=== PATIENT | female | born 1965 | race Caucasian/White ===

== ENCOUNTER 2017-08-12 10:10 | Inpatient (IN) | payer OTHER ==
[2017-08-12] VITALS (9 sets, daily range): BP systolic 104–137; BP diastolic 55–81; PULSE 79–99; RESP 13–22; TEMP 97.8–98.1; O2SAT 93–99
[~2017-08-12] VITALS: Ht 162.6 cm; Wt 107.6 kg
[2017-08-12] MEDS ORDERED: METO100T PO (10:25)
[2017-08-12] MEDS ORDERED: LEVO25TA4 PO (10:25)
[2017-08-12] MEDS ORDERED: SODIUM CHLORIDE 0.9% FLUSH 10 ML FLUSH IVF PRN (11:00)
--- NOTE | 2017-08-12 11:04 | PD ---
HPI Chief Complaint: Chest Pain Time Seen by Provider: 10:36 Travel History International Travel<30 days: No Contact w/Intl Traveler<30days: No Traveled to known affect area: No History of Present Illness HPI The patient is a 52-year-old female who presents to the emergency department for left-sided weakness, numbness, and mild confusion. The patient states she went to bed last night feeling well, however, when she awakened today she noticed she had blurry vision, mild confusion, and left-sided weakness and numbness. The patient states her left arm and left leg feel heavy , numb, and also notes some mild left-sided chest pain. The patient denied any nausea, vomiting, or diaphoresis. The patient does have a history of hypertension, denies any previous history of hyperlipidemia, diabetes, tobacco use, CVA, TIA, or CO. The patient went to work, however, states she was staring at her computer screen for 2 hours and then told her boss that there was "something wrong". She awakened with symptoms, does not know the exact onset of her symptoms. PFSH Past Medical History Anxiety: Yes Depression: Yes Cardiovascular Problems: Yes High Cholesterol: Yes (BORDERLINE) Diminished Hearing: No Headaches: Yes Hypertension: Yes Thyroid Disease: Yes ?: Not : 2 Para: 2 Past Surgical History Gynecologic Surgery: Yes (PARTIAL HYST) Hysterectomy: Yes (PARTIAL) Tonsillectomy: Yes Social History Alcohol Use: Yes (RARELY) Tobacco Use: No Substance Use: No Allergies-Medications (Allergen,Severity, Reaction): Coded Allergies: acetaminophen (Verified Allergy, Severe, Nausea/Vomiting, 08/12/17) oxycodone (Verified Allergy, Severe, Nausea/Vomiting, 08/12/17) Reported Meds & Prescriptions Reported Meds & Active Scripts Active Reported Xanax (Alprazolam) 2 Mg Tab 2 Mg PO Q8H PRN Effexor (Venlafaxine HCl) 75 Mg Tab 75 Mg PO DAILY Metoprolol Tartrate 100 Mg Tab 100 Mg PO BID Levothyroxine (Levothyroxine Sodium) 25 Mcg Tab 25 Mcg PO DAILY Review of Systems Except as stated in HPI: all other systems reviewed are Neg General / Constitutional: No: Fever Cardiovascular: Positive: Chest Pain or Discomfort Respiratory: No: Shortness of Breath Gastrointestinal: No: Nausea, Vomiting, Abdominal Pain Musculoskeletal: Positive: Weakness Neurologic: Positive: Change in Mentation, Paresthesia, Sensory Disturbance Physical Exam Narrative GENERAL: Awake, alert, nontoxic-appearing 52-year-old female who appears her stated age and is in no acute respiratory distress. SKIN: Focused skin assessment warm/dry. HEAD: Atraumatic. Normocephalic. EYES: Pupils equal and round. Pupils are 3 mm bilateral and reactive. EOMs are intact. Patient is able to see fingers at a distance of 2 feet without difficulty. ENT: No nasal bleeding or discharge. Mucous membranes pink and moist. NECK: Trachea midline. No JVD. CARDIOVASCULAR: Regular rate and rhythm. No murmur appreciated. RESPIRATORY: No accessory muscle use. Clear to auscultation. Breath sounds equal bilaterally. GASTROINTESTINAL: Abdomen soft, non-tender, nondistended. MUSCULOSKELETAL: No obvious deformities. No clubbing. No cyanosis. No edema. NEUROLOGICAL: Awake and alert. Patient is slightly slow to respond to questioning. No obvious dysarthria. Smile is symmetric. Finger to nose and heel to hernandez are normal. Drift of the left leg noted. Sensation is decreased in sensation over the left leg, left arm, left aspect of the face, but is symmetric in the V1 distribution. She is alert and oriented 4, but does respond slowly when asking her to repeat phrases. NIHSS 4. PSYCHIATRIC: Appropriate mood and affect; insight and judgment normal. Data Data Last Documented VS Vital Signs Date Time Temp Pulse Resp B/P (MAP) Pulse Ox O2 Delivery O2 Flow Rate FiO2 08/12/17 11:35 97 Room Air 08/12/17 10:47 96 18 08/12/17 10:11 97.9 Orders Orders Prothrombin Time / Inr (Pt) (08/12/17 10:48) Act Partial Throm Time (Ptt) (08/12/17 10:48) Complete Blood Count With Diff (08/12/17 10:48) Comprehensive Metabolic Panel (08/12/17 10:48) Creatine Kinase (Cpk) (08/12/17 10:48) Drug Screen, Random Urine (08/12/17 10:48) Troponin I (08/12/17 10:48) Urinalysis - C+S If Indicated (08/12/17 10:48) Ct Brain W/O Iv Contrast(Rout) (08/12/17 10:48) Chest, Single Ap (08/12/17 10:48) Ecg Monitoring (08/12/17 10:48) Iv Access Insert/Monitor (08/12/17 10:48) Oximetry (08/12/17 10:48) Blood Glucose (08/12/17 10:48) Sodium Chloride 0.9% Flush (Ns Flush) (08/12/17 11:00) Aspirin (Aspirin) (08/12/17 11:30) Morphine Inj (Morphine Inj) (08/12/17 12:15) Ondansetron Inj (Zofran Inj) (08/12/17 12:15) Place In Observation (08/12/17 ) Vital Signs (Adult) Q4H (08/12/17 12:13) Activity Bed Rest (08/12/17 12:13) Diet Npo (08/12/17 Lunch) Admit Order (Ed Use Only) (08/12/17 12:13) Labs Laboratory Tests Test 08/12/17 10:50 08/12/17 11:20 White Blood Count 9.9 TH/MM3 Red Blood Count 4.46 MIL/MM3 Hemoglobin 13.2 GM/DL Hematocrit 39.5 % Mean Corpuscular Volume 88.5 FL Mean Corpuscular Hemoglobin 29.6 PG Mean Corpuscular Hemoglobin Concent 33.4 % Red Cell Distribution Width 14.6 % Platelet Count 320 TH/MM3 Mean Platelet Volume 8.1 FL Neutrophils (%) (Auto) 68.4 % Lymphocytes (%) (Auto) 22.5 % Monocytes (%) (Auto) 7.4 % Eosinophils (%) (Auto) 0.9 % Basophils (%) (Auto) 0.8 % Neutrophils # (Auto) 6.8 TH/MM3 Lymphocytes # (Auto) 2.2 TH/MM3 Monocytes # (Auto) 0.7 TH/MM3 Eosinophils # (Auto) 0.1 TH/MM3 Basophils # (Auto) 0.1 TH/MM3 CBC Comment DIFF FINAL Differential Comment Prothrombin Time 9.7 SEC Prothromb Time International Ratio 0.9 RATIO Activated Partial Thromboplast Time 23.9 SEC Blood Urea Nitrogen 15 MG/DL Creatinine 0.87 MG/DL Random Glucose 99 MG/DL Total Protein 7.1 GM/DL Albumin 3.3 GM/DL Calcium Level 8.6 MG/DL Alkaline Phosphatase 110 U/L Aspartate Amino Transf (AST/SGOT) 17 U/L Alanine Aminotransferase (ALT/SGPT) 36 U/L Total Bilirubin 0.3 MG/DL Sodium Level 139 MEQ/L Potassium Level 3.9 MEQ/L Chloride Level 103 MEQ/L Carbon Dioxide Level 27.4 MEQ/L Anion Gap 9 MEQ/L Estimat Glomerular Filtration Rate 68 ML/MIN Total Creatine Kinase 43 U/L Troponin I LESS THAN 0.02 NG/ML Urine Color LIGHT-YELLOW Urine Turbidity CLEAR Urine pH 6.5 Urine Specific Brandt 1.006 Urine Protein NEG mg/dL Urine Glucose (UA) NEG mg/dL Urine Ketones NEG mg/dL Urine Occult Blood NEG Urine Nitrite NEG Urine Bilirubin NEG Urine Urobilinogen LESS THAN 2.0 MG/DL Urine Leukocyte Esterase NEG Urine WBC LESS THAN 1 /hpf Urine Squamous Epithelial Cells 1 /hpf Microscopic Urinalysis Comment CATH-CULT NOT IND Urine Opiates Screen NEG Urine Barbiturates Screen NEG Urine Amphetamines Screen NEG Urine Benzodiazepines Screen POS Urine Cocaine Screen NEG Urine Cannabinoids Screen NEG MDM Medical Decision Making Medical Screen Exam Complete: Yes Emergency Medical Condition: Yes Medical Record Reviewed: Yes Interpretation(s) Last Impressions Head CT [id number]/12/[id number] Signed Impressions: Service Date/Time: Saturday, August 12, 2017 10:47 - CONCLUSION: Normal examination. Dejon Arellano Jr., MD Chest X-Ray [id number]/12/[id number] Signed Impressions: Service Date/Time: Saturday, August 12, 2017 11:41 - CONCLUSION: Hypoinflation with no acute cardiopulmonary process. Jose Rosas MD Laboratory Tests Test 08/12/17 10:50 08/12/17 11:20 White Blood Count 9.9 TH/MM3 Red Blood Count 4.46 MIL/MM3 Hemoglobin 13.2 GM/DL Hematocrit 39.5 % Mean Corpuscular Volume 88.5 FL Mean Corpuscular Hemoglobin 29.6 PG Mean Corpuscular Hemoglobin Concent 33.4 % Red Cell Distribution Width 14.6 % Platelet Count 320 TH/MM3 Mean Platelet Volume 8.1 FL Neutrophils (%) (Auto) 68.4 % Lymphocytes (%) (Auto) 22.5 % Monocytes (%) (Auto) 7.4 % Eosinophils (%) (Auto) 0.9 % Basophils (%) (Auto) 0.8 % Neutrophils # (Auto) 6.8 TH/MM3 Lymphocytes # (Auto) 2.2 TH/MM3 Monocytes # (Auto) 0.7 TH/MM3 Eosinophils # (Auto) 0.1 TH/MM3 Basophils # (Auto) 0.1 TH/MM3 CBC Comment DIFF FINAL Differential Comment Prothrombin Time 9.7 SEC Prothromb Time International Ratio 0.9 RATIO Activated Partial Thromboplast Time 23.9 SEC Blood Urea Nitrogen 15 MG/DL Creatinine 0.87 MG/DL Random Glucose 99 MG/DL Total Protein 7.1 GM/DL Albumin 3.3 GM/DL Calcium Level 8.6 MG/DL Alkaline Phosphatase 110 U/L Aspartate Amino Transf (AST/SGOT) 17 U/L Alanine Aminotransferase (ALT/SGPT) 36 U/L Total Bilirubin 0.3 MG/DL Sodium Level 139 MEQ/L Potassium Level 3.9 MEQ/L Chloride Level 103 MEQ/L Carbon Dioxide Level 27.4 MEQ/L Anion Gap 9 MEQ/L Estimat Glomerular Filtration Rate 68 ML/MIN Total Creatine Kinase 43 U/L Troponin I LESS THAN 0.02 NG/ML Urine Color LIGHT-YELLOW Urine Turbidity CLEAR Urine pH 6.5 Urine Specific Brandt 1.006 Urine Protein NEG mg/dL Urine Glucose (UA) NEG mg/dL Urine Ketones NEG mg/dL Urine Occult Blood NEG Urine Nitrite NEG Urine Bilirubin NEG Urine Urobilinogen LESS THAN 2.0 MG/DL Urine Leukocyte Esterase NEG Urine WBC LESS THAN 1 /hpf Urine Squamous Epithelial Cells 1 /hpf Microscopic Urinalysis Comment CATH-CULT NOT IND Urine Opiates Screen NEG Urine Barbiturates Screen NEG Urine Amphetamines Screen NEG Urine Benzodiazepines Screen POS Urine Cocaine Screen NEG Urine Cannabinoids Screen NEG Differential Diagnosis Differential diagnosis includes TIA, CVA, carotid dissection, vertebral artery dissection, MS, ACS, hypoxia, hyponatremia. Narrative Course IV was established, labs are drawn and sent, and the patient was placed on cardiac telemetry monitoring and continuous pulse oximetry monitoring. Stat CT of the brain was obtained. Chest x-ray was obtained. CT the brain is negative , therefore, the patient was administered aspirin 325 mg orally. X-rays unremarkable. Laboratory evaluation is unremarkable. Patient has numbness of the left side including the face, left arm, and left leg with mild drift to left leg, most likely related to CVA. Patient was not a candidate for TPA as she went to bed feeling well, and awakened with symptoms. Other considerations could be atypical neurologic disease including EMS. The patient will be minutes the medical service and may benefit from MRI and neurologic evaluation. Physician Communication Physician Communication I discussed the patient with the residents who agree with admission. Diagnosis Primary Impression: CVA (cerebral vascular accident) Qualified Codes: I63.9 - Cerebral infarction, unspecified Additional Impression: Left sided numbness Admitting Information Admitting Physician Requests: Admit Condition: Stable Beau Willingham MD Aug 12, 2017 11:04
[2017-08-12 11:14] LABS: AUTOMATED NEUTROPHIL # 6.8 TH/MM3 (1.8-7.7); BASOPHIL # 0.1 TH/MM3 (0-0.2); BASOPHIL % 0.8 % (0.0-2.0); EOSINOPHIL # 0.1 TH/MM3 (0-0.4); EOSINOPHIL % 0.9 % (0.0-4.0); HEMATOCRIT 39.5 % (35.0-46.0); HEMO FLAGS DIFF FINAL; LYMPH % 22.5 % (9.0-44.0); LYMPHOCYTE # 2.2 TH/MM3 (1.0-4.8); MEAN CELL VOLUME 88.5 FL (80.0-100.0); MEAN CORPUSCULAR HEMOGLOBIN 29.6 PG (27.0-34.0); MEAN CORPUSCULAR HGB CONC 33.4 % (32.0-36.0); MONO % 7.4 % (0.0-8.0); NEUT % 68.4 % (16.0-70.0); PLATELET COUNT 320 TH/MM3 (150-450); RED BLOOD COUNT 4.46 MIL/MM3 (4.00-5.30); RED CELL DISTRIBUTION WIDTH 14.6 % (11.6-17.2); WHITE BLOOD COUNT 9.9 TH/MM3 (4.0-11.0)
--- NOTE | 2017-08-12 11:16 | RADRPT ---
EXAM DATE/TIME: 08/12/2017 10:47 [facility] COMPARISON: No previous studies available for comparison. INDICATIONS : Left sided weakness and confusion. RADIATION DOSE: 56.35 CTDIvol (mGy) MEDICAL HISTORY : Cardiovascular disease. Hypertension. SURGICAL HISTORY : Hysterectomy. ENCOUNTER: Initial ACUITY: 1 day PAIN SCALE: 0/10 LOCATION: cranial TECHNIQUE: Multiple contiguous axial images were obtained of the head. Using automated exposure control and adj ustment of the mA and/or kV according to patient size, radiation dose was kept as low as reasonably a chievable to obtain optimal diagnostic quality images. DICOM format image data is available electro nically for review and comparison. FINDINGS: CEREBRUM: The ventricles are normal for age. No evidence of midline shift, mass lesion, hemorrhage or acute in farction. No extra-axial fluid collections are seen. POSTERIOR FOSSA: The cerebellum and brainstem are intact. The 4th ventricle is midline. The cerebellopontine angle i s unremarkable. EXTRACRANIAL: The visualized portion of the orbits is intact. SKULL: The calvaria is intact. No evidence of skull fracture. CONCLUSION: Normal examination. Dejon Arellano Jr., MD on August 12, 2017 at 11:13 Board Certified Radiologist. This report was verified electronically.
[2017-08-12 11:24] LABS: APTT (PATIENT) 23.9 SEC (24.3-30.1); INTERNATIONAL NORMALIZED RATIO 0.9 RATIO; PROTHROMBIN TIME - PATIENT 9.7 SEC (9.8-11.6)
[2017-08-12] MEDS ORDERED: ASPIRIN 325 MG TAB PO ONE (11:30)
[2017-08-12 11:36] LABS: BLOOD, URINE NEG (NEG); GLUCOSE,URINE NEG (NEG); KETONE, URINE NEG (NEG); NITRITE,URINE NEG (NEG); PH, URINE 6.5 (5.0-8.5); SQUAMOUS EPITHELIAL CELL URINE 1 /hpf (0-5); URINE COLOR LIGHT-YELLOW (YELLW/STRAW)
[2017-08-12 11:38] LABS: ALT (GPT) 36 U/L (10-53); ANION GAP 9 MEQ/L (5-15); AST (GOT) 17 U/L (15-37); BICARBONATE 27.4 MEQ/L (21.0-32.0); BLOOD UREA NITROGEN 15 MG/DL (7-18); CHLORIDE 103 MEQ/L (98-107); GLOMERULAR FILTRATION RATE 68 ML/MIN (>89); POTASSIUM 3.9 MEQ/L (3.5-5.1); SODIUM (NA) 139 MEQ/L (136-145)
[2017-08-12 11:38] LABS: COMMENT (UR) CATH-CULT NOT IND; CULTURE IF INDICATED CATH CULTURE NOT IND
[2017-08-12 11:42] LABS: ALKALINE PHOSPHATASE 110 U/L (45-117); TOTAL BILIRUBIN ADULT 0.3 MG/DL (0.2-1.0)
[2017-08-12 11:45] LABS: CREATINE KINASE 43 U/L (26-192)
--- NOTE | 2017-08-12 11:50 | RADRPT ---
EXAM DATE/TIME: 08/12/2017 11:41 [facility] COMPARISON: No previous studies available for comparison. INDICATIONS : CVA, staring, vision doubled, confused. MEDICAL HISTORY : Atrial fibrillation in 2006 SURGICAL HISTORY : None. ENCOUNTER: Initial ACUITY: 1 day PAIN SCORE: 0/10 LOCATION: Bilateral chest FINDINGS: A single view of the chest demonstrates the lungs to be hypoinflated but clear. No effusions. Heart s ize is normal. Osseous structures are intact. CONCLUSION: Hypoinflation with no acute cardiopulmonary process. Jose Rosas MD on August 12, 2017 at 11:48 Board Certified Radiologist. This report was verified electronically.
[2017-08-12] MEDS ORDERED: VENL75TA PO (11:57)
[2017-08-12] MEDS ORDERED: XANA2TAB2 PO (11:57)
[2017-08-12] MEDS ORDERED: ONDANSETRON HCL 4 MG/2 ML VIAL IV PUSH ONE (12:15)
[2017-08-12] MEDS ORDERED: MORPHINE SULFATE 2 MG/ML INJ IV PUSH ONE (12:15)
--- NOTE | 2017-08-12 13:06 | HHI.HP ---
[facility] Service Family Medicine Primary Care Physician Non-Staff Admission Diagnosis CVA, left-sided weakness/numbness, visual changes Diagnoses: International Travel<30 Days: No Contact w/Intl Traveler<30days: No Known Affected Area: No History of Present Illness Patient is a 52 y/o F w/hx of HLD, afib, and HTN presenting with left-sided weakness and diplopia. Her 2 best friends are at bedside. At 7:30 am this morning, she says that she felt like she was in a fog while driving, experiencing diplopia w/headache. States her left side was "bothering her," and further elaborates that she felt left-sided chest pain and weakness/ numbness/tingling on the left side. She still proceeded on to her workplace, and while at work, noticed that her writing appeared more sloppy. 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 She was excused from work and then drove herself to the ED. all the while, she had trouble staying focused on the road and felt confused. Her best friend spoke with her on the phone earlier in the day and noted increased slurring of speech. Currently, her confusion has resolved but her left side still feels painful/uncomfortable. Patient states she has felt better with aspirin she received in the ER. Denies palpitations, syncope, tremor, or hx of seizures. A week ago, had slurred speech and sluggishness lasting a couple hours. She states she then continued on with her day and did nothing about the symptoms she had. Has been very stressed at work lately and admits to "taking on too much." Dr. Arellano is her PCP. 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 Had a history of afib in 2006. Was placed on coumadin for a year. However, she stopped taking it because her afib "went way." Does not take a daily aspirin or any form of anticoagulation. (Chinyere Chang MD R1) Review of Systems Constitutional: DENIES: Fatigue, Fever, Night Sweats Eyes: COMPLAINS OF: Blurred vision, DENIES: Eye pain Ears, nose, mouth, throat: DENIES: Tinnitus, Throat pain Respiratory: DENIES: Cough, Shortness of breath Cardiovascular: DENIES: Palpitations, Lower Extremity Edema Gastrointestinal: DENIES: Constipation, Diarrhea, Nausea Genitourinary: DENIES: Urinary frequency, Urinary incontinence Musculoskeletal: DENIES: Muscle aches, Stiffness Integumentary: DENIES: Abnormal pigmentation, Pruritus Hematologic/lymphatic: DENIES: Bruising Neurologic: COMPLAINS OF: Poor Balance, DENIES: Seizures, Tremor Psychiatric: COMPLAINS OF: Anxiety (Chinyere Chang MD R1) Past Family Social History Past Medical History Hypothyroidism HTN Anxiety Depression Recurrent sinus infxns Hx of atrial fibrillation on coumadin - 2006, took coumadin for a year Past Surgical History Fibroid cyst removal - 2008 Reported Medications Xanax (Alprazolam) 2 Mg Tab 2 Mg PO Q8H PRN Effexor (Venlafaxine HCl) 75 Mg Tab 75 Mg PO DAILY Metoprolol Tartrate 100 Mg Tab 100 Mg PO BID Levothyroxine (Levothyroxine Sodium) 25 Mcg Tab 25 Mcg PO DAILY (Chinyere Chang MD R1) Allergies: Coded Allergies: acetaminophen (Verified Allergy, Severe, Nausea/Vomiting, 08/12/17) oxycodone (Verified Allergy, Severe, Nausea/Vomiting, 08/12/17) Family History Mom: Izzy's Dad: passed at age 81 from fall, HLD, HTN Social History No smoking hx, no illict/recreational drug use, ETOH cocktail once/week (Chinyere Chang MD R1) Physical Exam Vital Signs Vital Signs Date Time Temp Pulse Resp B/P (MAP) Pulse Ox O2 Delivery O2 Flow Rate FiO2 08/12/17 11:35 97 Room Air 08/12/17 10:47 96 18 136/81 (99) 96 Room Air 08/12/17 10:24 96 22 137/78 (97) 96 Room Air 08/12/17 10:11 97.9 99 13 134/76 (95) 99 Physical Exam GENERAL: This is a well-nourished, well-developed patient, laying flat in bed, in no apparent distress. SKIN: Cool and dry. HEAD: Atraumatic. Normocephalic. EYES: Pupils equal round and reactive. Extraocular motions intact. No nystagmus on fixed, lateral, or smooth pursuit gaze. No scleral icterus. No injection or drainage. ENT: Throat without erythema. Uvula midline. Airway patent. NECK: Trachea midline. Supple, nontender, no meningeal signs. CARDIOVASCULAR: Regular rate and rhythm without murmurs, gallops, or rubs. RESPIRATORY: Clear to auscultation. Breath sounds equal bilaterally. No wheezes , rales, or rhonchi. GASTROINTESTINAL: Abdomen soft, non-tender, nondistended. N MUSCULOSKELETAL: Extremities without clubbing, cyanosis, or edema. No calf tenderness. NEUROLOGICAL: Awake and alert. Cranial nerves II, III, -X intact, CN XII intact. Decreased sensation to touch along the left sided of the face. Left sided decreased sensation to touch of extremities, 4/5 strength. Increased or 3 + reflexes of triceps, patella, and biceps of left side. Negative Babinksi's sign. Cerebellar testing (nose to finger, heel to hernandez) normal. Normal speech , no facial droop observed.. Laboratory Laboratory Tests Test 08/12/17 10:50 08/12/17 11:20 White Blood Count 9.9 Red Blood Count 4.46 Hemoglobin 13.2 Hematocrit 39.5 Mean Corpuscular Volume 88.5 Mean Corpuscular Hemoglobin 29.6 Mean Corpuscular Hemoglobin Concent 33.4 Red Cell Distribution Width 14.6 Platelet Count 320 Mean Platelet Volume 8.1 Neutrophils (%) (Auto) 68.4 Lymphocytes (%) (Auto) 22.5 Monocytes (%) (Auto) 7.4 Eosinophils (%) (Auto) 0.9 Basophils (%) (Auto) 0.8 Neutrophils # (Auto) 6.8 Lymphocytes # (Auto) 2.2 Monocytes # (Auto) 0.7 Eosinophils # (Auto) 0.1 Basophils # (Auto) 0.1 CBC Comment DIFF FINAL Differential Comment Prothrombin Time 9.7 Prothromb Time International Ratio 0.9 Activated Partial Thromboplast Time 23.9 Blood Urea Nitrogen 15 Creatinine 0.87 Random Glucose 99 Total Protein 7.1 Albumin 3.3 Calcium Level 8.6 Alkaline Phosphatase 110 Aspartate Amino Transf (AST/SGOT) 17 Alanine Aminotransferase (ALT/SGPT) 36 Total Bilirubin 0.3 Sodium Level 139 Potassium Level 3.9 Chloride Level 103 Carbon Dioxide Level 27.4 Anion Gap 9 Estimat Glomerular Filtration Rate 68 Total Creatine Kinase 43 Troponin I LESS THAN 0.02 Urine Color LIGHT-YELLOW Urine Turbidity CLEAR Urine pH 6.5 Urine Specific [place] 1.006 Urine Protein NEG Urine Glucose (UA) NEG Urine Ketones NEG Urine Occult Blood NEG Urine Nitrite NEG Urine Bilirubin NEG Urine Urobilinogen LESS THAN 2.0 Urine Leukocyte Esterase NEG Urine WBC LESS THAN 1 Urine Squamous Epithelial Cells 1 Microscopic Urinalysis Comment CATH-CULT NOT IND Urine Opiates Screen NEG Urine Barbiturates Screen NEG Urine Amphetamines Screen NEG Urine Benzodiazepines Screen POS Urine Cocaine Screen NEG Urine Cannabinoids Screen NEG (Chinyere Chang MD R1) Result Diagram: 08/12/17 1050 08/12/17 1050 Imaging Last [address] 08/12/17 1048 Signed Impressions: Service Date/Time: Saturday, August 12, 2017 10:47 - CONCLUSION: Normal examination. Dejon Arellano Jr., MD Chest X-Ray 08/12/17 1048 Signed Impressions: Service Date/Time: Saturday, August 12, 2017 11:41 - CONCLUSION: Hypoinflation with no acute cardiopulmonary process. Jose Rosas MD (Chinyere Chang MD R1) Caprini VTE Risk Assessment Caprini VTE Risk Assessment: Mod/High Risk (score >= 2) Caprini Risk Assessment Model Point Value = 1 Point Value = 2 Point Value = 3 Point Value = 5 Age 41-60 Minor surgery BMI > 25 kg/m2 Swollen legs Varicose veins or History of unexplained or recurrent spontaneous Oral contraceptives or hormone replacement Sepsis (< 1 month) Serious lung disease, including pneumonia (< 1 month) Abnormal pulmonary function Acute myocardial infarction Congestive heart failure (< 1 month) History of inflammatory bowel disease Medical patient at bed rest Age 61-74 Arthroscopic surgery Major open surgery (> 45 min) Laparoscopic surgery (> 45 min) Malignancy Confined to bed (> 72 hours) Immobilizing plaster cast Central venous access Age >= 75 History of VTE Family history of VTE Factor V Leiden Prothrombin [id number] Lupus anticoagulant Anticardiolipin antibodies Elevated serum homocysteine Heparin-induced thrombocytopenia Other congenital or acquired thrombophilia Stroke (< 1 month) Elective arthroplasty Hip, pelvis, or leg fracture Acute spinal cord injury (< 1 month) Prophylaxis Regimen Total Risk Factor Score Risk Level Prophylaxis Regimen 0-1 Low Early ambulation 2 Moderate Order ONE of the following: *Sequential Compression Device (SCD) *Heparin 5000 units SQ BID 3-4 Higher Order ONE of the following medications: *Heparin 5000 units SQ TID *Enoxaparin/Lovenox 40 mg SQ daily (WT < 150 kg, CrCl > 30 mL/min) *Enoxaparin/Lovenox 30 mg SQ daily (WT < 150 kg, CrCl > 10-29 mL/min) *Enoxaparin/Lovenox 30 mg SQ BID (WT < 150 kg, CrCl > 30 mL/min) AND/OR *Sequential Compression Device (SCD) 5 or more Highest Order ONE of the following medications: *Heparin 5000 units SQ TID (Preferred with Epidurals) *Enoxaparin/Lovenox 40 mg SQ daily (WT < 150 kg, CrCl > 30 mL/min) *Enoxaparin/Lovenox 30 mg SQ daily (WT < 150 kg, CrCl > 10-29 mL/min) *Enoxaparin/Lovenox 30 mg SQ BID (WT < 150 kg, CrCl > 30 mL/min) AND *Sequential Compression Device (SCD) (Chinyere Chang MD R1) Assessment and Plan Assessment and Plan Patient is a 52 y/o F w/hx of afib, HTN, and HLD presenting with headache, left sided chest pain,left sided weakness, and other stroke-like symptoms. Stroke scale of 4 (minimal). CT of the head was negative, patient was not a t-PA candidate due to length of time of symptoms. Patient passed swallow study and EKG and troponins were negative. Will admit patient for stroke work-up and consult neurology based on patient's hx of afib w/o anticoagulation and presentation of stroke-like symptoms. CHADSVASC score of 2. She is a candidate for anticoagulation. Differential: TIA, stroke, MS, hemiplegic migraine/migraine with aura, seizure Code Status FULL Discussed Condition With Dr. Herman and Dr. Zendejas (Chinyere Chang MD R1) Attending Attestation Patient seen and examined. Case reviewed and discussed with the resident team. Agree with plan of care as discussed with me and documented in the resident note. she is young and fortunately her sxs started to quickly improve. her history of a fib is not able to be verified right now with Medical records as this occurred many years ago and not at this hospital. starting strong anticoagulants always has some risk. here in the hospital no a fib has been seen but will keep monitoring this. Appreciate help of Neurology. Pt seen by me on admission in the ED with the residents (Ashley Herman MD) Problem List: (1) Stroke-like episode ICD Codes: I63.9 - Cerebral infarction, unspecified Status: Acute Plan: Associated w/reported slurred speech, diplopia, left sided decreased sensation to touch, tingling, and weakness. Has had similar episodes in the past - Neurochecks Q4H - Consult neurology - tele, 2D echo - MRI, MRA, US carotids, lipid profile, A1C - lying flat in bed for 12 hours, allow for permissive HTN (BP<220/120) - Pravastatin 40 mg daily - 81 mg aspirin and Lovenox 40 mg qdaily for anticoagulation (2) Migraine with aura ICD Codes: G43.109 - Migraine with aura, not intractable, without status migrainosus Status: Acute Plan: Associated w/unilateral, throbbing headache, photophobia, nausea, diplopia, and hemiplegia May be contributing to presenting symptoms Improvement in symptoms w/aspirin - Ibuprofen Q6H PRN - avoid codeine and acetaminophen containing products due to adverse rxn - may consider sumatriptan for abortive therapy if no resolution of headache (3) Afib ICD Codes: I48.91 - Unspecified atrial fibrillation Plan: No afib observed on tele or on EKG Hx of afib per patient report, no anticoagulation - start baby ASA daily, Lovanox 40 mg daily -US carotids and 2D echo - cardiac tele monitoring (4) HTN (hypertension) ICD Codes: I10 - Essential (primary) hypertension Plan: Con't home metroprolol (5) Anxiety ICD Codes: F41.9 - Anxiety disorder, unspecified Plan: Home Xanax of 2 mg Q8H PRN, usually take one tab nightly - Start Xanax 1 mg Q8H PRN (6) Depression ICD Codes: F32.9 - Major depressive disorder, single episode, unspecified Plan: Con't home venlafaxine 75 mg daily (7) Hypothyroidism ICD Codes: E03.9 - Hypothyroidism, unspecified Plan: Con't home Levothyroxine 25 mg daily (8) FEN Plan: Fluids: none Electrolytes: none Nutrition: regular diet GI prophy: not indicated DVT prophy: Lovanox and baby ASA (Chinyere Chang MD R1) Physician Certification 2 Midnight Certification Type: Admission for Inpatient Services Order for Inpatient Services The services are ordered in accordance with Medicare regulations or non- Medicare payer requirements, as applicable. In the case of services not specified as inpatient-only, they are appropriately provided as inpatient services in accordance with the 2-midnight benchmark. Estimated LOS (days): 2 2 days is the estimated time the patient will need to remain in the hospital, assuming treatment plan goals are met and no additional complications. Post-Hospital Plan: Home (Chinyere Chang MD R1) Problem Qualifiers (1) Migraine with aura: Qualified Codes: G43.101 - Migraine with aura, not intractable, with status migrainosus (2) Afib: Qualified Codes: I48.0 - Paroxysmal atrial fibrillation (3) HTN (hypertension): Qualified Codes: I10 - Essential (primary) hypertension (4) Depression: Qualified Codes: F32.9 - Major depressive disorder, single episode, unspecified (5) Hypothyroidism: Qualified Codes: E03.9 - Hypothyroidism, unspecified Chinyere Chang MD R1 Aug 12, 2017 13:06 Ashley Herman MD Aug 14, 2017 13:12
[2017-08-12] MEDS ORDERED: SODIUM CHLORIDE 0.9% FLUSH 10 ML FLUSH IV FLUSH PRN (14:00)
[2017-08-12] MEDS ORDERED: MAGNESIUM HYDROXIDE SUSP 30 ML CUP PO PRN (14:00)
[2017-08-12] MEDS ORDERED: NALOXONE HCL 0.4 MG/ML AMP IV PUSH PRN (14:00)
[2017-08-12] MEDS ORDERED: SENNOSIDES 8.6 MG TAB PO PRN (14:00)
[2017-08-12] MEDS ORDERED: LACTULOSE SYRUP 20 GM/30 ML CUP PO PRN (14:00)
[2017-08-12] MEDS ORDERED: BISACODYL 10 MG SUPP RECTAL PRN (14:00)
[2017-08-12] MEDS: ENOXAPARIN SODIUM 40 MG/0.4 ML SYRINGE SQ SCH (14:50)
[2017-08-12] MEDS: ALPRAZolam 1 MG TAB PO PRN ×2 (14:51→23:36)
[2017-08-12 14:54] LABS: HDL CHOLESTEROL 68.4 MG/DL (40.0-60.0); LDL CHOLESTEROL 110 MG/DL (0-99)
--- NOTE | 2017-08-12 16:13 | RADRPT ---
EXAM DATE/TIME: 08/12/2017 15:01 [facility] COMPARISON: No previous studies available for comparison. INDICATIONS : Cerebrovascular accident. MEDICAL HISTORY : Hypercholesterolemia. Hypertension. Thyroid disease. Headache. SURGICAL HISTORY : Tonsillectomy. Partial hysterectomy. 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 ENCOUNTER: Initial ACUITY: 1 day PAIN SCORE: 0/10 LOCATION: Bilateral neck PEAK SYSTOLIC VELOCITIES (cm/sec): ICA/CCA RATIO: Right: 1.7 Left: 0.9 ICA: Right: 85.3 Left: 82.3 CCA: Right: 48.8 Left: 88.2 ECA: Right: 104.3 Left: 77.1 VERTEBRAL: Right: 39.2 antegrade Left: 46.8 antegrade Elevated flow velocities and ICA/CCA ratios have been found to correlate with increased degrees of vessel stenosis, calculated as percentage of diameter relative to a normal segment of distal ICA/CCA FINDINGS: RIGHT CAROTID: Minimal plaquing in the carotid bulb. The waveforms are within normal limits. LEFT CAROTID: Minimal plaquing in the carotid bulb. The waveforms are within normal limits. VERTEBRAL ARTERIES: Antegrade flow is seen in both vertebral arteries. MISCELLANEOUS: None. CONCLUSION: 1. Minimal atherosclerotic plaquing in the carotid bulbs bilaterally. 2. No sonographic or Doppler findings of a hemodynamically significant stenosis. Antegrade flow in rosi th vertebrals Jose Rosas MD on August 12, 2017 at 16:10 Board Certified Radiologist. This report was verified electronically.
[2017-08-12 16:39] LABS: HEMOGLOBIN A1a 1.2 %; HEMOGLOBIN A1b 1.1 %; HEMOGLOBIN F 0.9 %; HEMOGLOBIN LA1C 2.1 %; HEMOGLOBIN P3 3.7 %
[2017-08-12 16:40] LABS: HEMOGLOBIN Ao 84.6 %
--- NOTE | 2017-08-12 16:53 | RADRPT ---
EXAM DATE/TIME: 08/12/2017 16:00 [facility] COMPARISON: MRI BRAIN W/O CONTRAST, August 12, 2017, 16:00. INDICATIONS : Slurred speech. MEDICAL HISTORY : Hypertension. SURGICAL HISTORY : Tonsillectomy. Hysterectomy. ENCOUNTER: Initial ACUITY: 1 day PAIN SCORE: 2/10 LOCATION: Head Please note a normal MRA of the brain does not entirely exclude the possibility of a small aneurysm, nor the possibility of distal intracranial vessel disease. TECHNIQUE: 3D time of flight MRA was performed. Source images, multiplanar STS MIP, and 3D volume MIP reconstru ctions were reviewed. FINDINGS: There is absent flow in the left A1 segment with patent intercommunicating artery and symmetric appea vick the A2 segments bilaterally. The right posterior cerebral artery arises from the anterior circ ulation. No evidence of peripheral vessel truncation or aneurysm formation. The basilar artery is n ormal in size. 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 No vessel truncation or aneurysm. Dejon Krishnamurthy MD on August 12, 2017 at 16:49 Board Certified Radiologist. This report was verified electronically.
--- NOTE | 2017-08-12 16:54 | RADRPT ---
EXAM DATE/TIME: 08/12/2017 16:00 [facility] COMPARISON: No previous studies available for comparison. INDICATIONS : Slurred speech. MEDICAL HISTORY : Hypertension. SURGICAL HISTORY : Hysterectomy. Tonsillectomy. ENCOUNTER: Initial ACUITY: 1 day PAIN SCORE: 2/10 LOCATION: head TECHNIQUE: Multiplanar, multisequence MRI of the brain was performed without contrast. FINDINGS: CEREBRUM: The ventricles are normal for age. No evidence of midline shift, mass lesion, hemorrhage or acute in farction. No extraaxial fluid collections are seen. The pituitary gland and suprasellar cistern are normal in configuration. WHITE MATTER: No significant signal abnormalities are seen in the white matter. POSTERIOR FOSSA: The cerebellum and brainstem are intact. The 4th ventricle is midline. The cerebellopontine angle is unremarkable. The cerebellar tonsils are normal in position. DIFFUSION IMAGING: No focal areas of restricted diffusion are seen. No evidence of acute infarction. EXTRACRANIAL: Focal mucosal thickening in the medial inferior left basilar sinus measuring up to 1.4 cm without jarrod dence of air-fluid level. The visualized portions of the orbits are unremarkable. CONCLUSION: 1. No acute findings in the brain. 2. Left maxillary sinus disease. Dejon Krishnamurthy MD on August 12, 2017 at 16:51 Board Certified Radiologist. This report was verified electronically.
--- NOTE | 2017-08-12 19:01 | EKG ---
Date Performed: 08/12/2017 Time Performed: 10:21:38 PTAGE: 52 years EKG: Sinus rhythm NORMAL ECG NO PREVIOUS TRACING DOCTOR: Gage Barber Interpretating Date/Time 08/12/2017 19:00:38
[2017-08-12] MEDS: METOPROLOL TARTRATE 100 MG TAB PO SCH (20:32)
[2017-08-12] MEDS: PRAVASTATIN SOD 40 MG TAB PO SCH (20:32)
[2017-08-12] MEDS: IBUPROFEN 400 MG TAB PO PRN (20:32)
[2017-08-12] MEDS: DOCUSATE SODIUM 50 MG/SENNA 8.6 MG TAB PO SCH (20:33)
[2017-08-12] MEDS: SODIUM CHLORIDE 0.9% FLUSH 10 ML FLUSH IV FLUSH SCH (20:33)
[2017-08-13] VITALS (7 sets, daily range): BP systolic 94–113; BP diastolic 52–61; PULSE 57–83; RESP 18–20; TEMP 97.2–98.3; O2SAT 95–97
[2017-08-13] MEDS: IBUPROFEN 400 MG TAB PO PRN ×3 (02:17→18:17)
[2017-08-13] MEDS: LEVOTHYROXINE SODIUM 25 MCG TAB PO SCH (06:18)
[2017-08-13 08:39] LABS: AUTOMATED NEUTROPHIL # 5.2 TH/MM3 (1.8-7.7); BASOPHIL # 0.1 TH/MM3 (0-0.2); BASOPHIL % 0.8 % (0.0-2.0); EOSINOPHIL # 0.1 TH/MM3 (0-0.4); EOSINOPHIL % 1.6 % (0.0-4.0); HEMATOCRIT 36.3 % (35.0-46.0); HEMO FLAGS DIFF FINAL; LYMPH % 26.6 % (9.0-44.0); LYMPHOCYTE # 2.2 TH/MM3 (1.0-4.8); MEAN CORPUSCULAR HEMOGLOBIN 30.1 PG (27.0-34.0); MEAN CORPUSCULAR HGB CONC 33.8 % (32.0-36.0); MONO % 7.9 % (0.0-8.0); NEUT % 63.1 % (16.0-70.0); PLATELET COUNT 298 TH/MM3 (150-450); RED BLOOD COUNT 4.08 MIL/MM3 (4.00-5.30); RED CELL DISTRIBUTION WIDTH 14.3 % (11.6-17.2); WHITE BLOOD COUNT 8.2 TH/MM3 (4.0-11.0)
[2017-08-13] MEDS: SODIUM CHLORIDE 0.9% FLUSH 10 ML FLUSH IV FLUSH SCH ×2 (09:00→23:12)
[2017-08-13 09:14] LABS: ANION GAP 6 MEQ/L (5-15); AST (GOT) 18 U/L (15-37); BICARBONATE 31.2 MEQ/L (21.0-32.0); BLOOD UREA NITROGEN 15 MG/DL (7-18); CHLORIDE 103 MEQ/L (98-107); GLOMERULAR FILTRATION RATE 63 ML/MIN (>89); POTASSIUM 4.2 MEQ/L (3.5-5.1); SODIUM (NA) 140 MEQ/L (136-145)
[2017-08-13 09:19] LABS: ALKALINE PHOSPHATASE 96 U/L (45-117); ALT (GPT) 34 U/L (10-53); TOTAL BILIRUBIN ADULT 0.3 MG/DL (0.2-1.0)
[2017-08-13] MEDS: VENLAFAXINE HCL XR 75 MG CAP PO SCH (09:57)
[2017-08-13] MEDS: METOPROLOL TARTRATE 100 MG TAB PO SCH ×2 (09:57→23:02)
[2017-08-13] MEDS: DOCUSATE SODIUM 50 MG/SENNA 8.6 MG TAB PO SCH ×2 (09:57→23:02)
[2017-08-13] MEDS: ALPRAZolam 1 MG TAB PO PRN ×2 (09:57→18:17)
[2017-08-13] MEDS: ASPIRIN 81 MG CHEW TAB PO SCH (09:57)
--- NOTE | 2017-08-13 12:16 | HHI.HP ---
[facility] Service Family Medicine Primary Care Physician Non-Staff Admission Diagnosis CVA, left-sided weakness/numbness, visual changes Diagnoses: (1) Stroke-like episode Diagnosis: Principal (2) Migraine with aura Diagnosis: Principal (3) Afib Diagnosis: Principal (4) HTN (hypertension) Diagnosis: Principal (5) Anxiety Diagnosis: Principal (6) Depression Diagnosis: Principal (7) Hypothyroidism Diagnosis: Principal (8) FEN Diagnosis: Principal International Travel<30 Days: No Contact w/Intl Traveler<30days: No Known Affected Area: No History of Present Illness Ms Ngo is a 52 y/o F w/hx of HLD, afib, and HTN presenting with left- sided weakness and diplopia. Her 2 best friends are at bedside in the ED. At 7:30 am the morning of admission, she says that she felt like she was in a fog while driving, experiencing diplopia w/headache. States her left side was "bothering her," and further elaborates that she felt left-sided chest pain and weakness/numbness/tingling on the left side. She still proceeded on to her workplace, and while at work, noticed that her writing appeared more sloppy. 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 She was excused from work and then drove herself to the ED. all the while, she had trouble staying focused on the road and felt confused. Her best friend spoke with her on the phone earlier in the day and noted increased slurring of speech. Currently, her confusion has resolved but her left side still feels painful/uncomfortable. Patient states she has felt better with aspirin she received in the ER. Denies palpitations, syncope, tremor, or hx of seizures. A week ago, had slurred speech and sluggishness lasting a couple hours. She states she then continued on with her day and did nothing about the symptoms she had. Has been very stressed at work lately and admits to "taking on too much." Dr. Arellano is her PCP. Does not see a director of first impressions. Had a history of afib in 2006. Was placed on coumadin for a year. However, she stopped taking it because her afib "went way" and she could not afford the Drs visits and medicine monitoring. Does not take a daily aspirin. Her headache was described as left sided pounding with worsening with light. she has visual changes she described as seeing two computers but also said the computers looked like buildings or shapes. She has a history of "sinus headaches " but has not had a headache exactly similar to this one. She just finished abx for a presumed sinusitis or other illness and does have sinus pressure and pain regularly but her headache yesterday was different in the increased pain and in some characteristics from her usual headaches. Today, she feels much improved "about 90%" with her numbness and weakness on her left side and has been up walking this am .Her MRI did not show a stroke. Review of Systems Other Constitutional: DENIES: Fatigue, Fever, Night Sweats Eyes: COMPLAINS OF: Blurred vision, DENIES: Eye pain Ears, nose, mouth, throat: DENIES: Tinnitus, Throat pain Respiratory: DENIES: Cough, Shortness of breath Cardiovascular: DENIES: Palpitations, Lower Extremity Edema Gastrointestinal: DENIES: Constipation, Diarrhea, Nausea Genitourinary: DENIES: Urinary frequency, Urinary incontinence Musculoskeletal: DENIES: Muscle aches, Stiffness Integumentary: DENIES: Abnormal pigmentation, Pruritus Hematologic/lymphatic: DENIES: Bruising Neurologic: COMPLAINS OF: Poor Balance, DENIES: Seizures, Tremor Psychiatric: COMPLAINS OF: Anxiety Past Family Social History Past Medical History Hypothyroidism HTN Anxiety Depression Recurrent sinus infxns with allergies Hx of atrial fibrillation on coumadin - 2006, took coumadin for a year then self D/Fan Past Surgical History Fibroid cyst removal - 2008 Allergies: Coded Allergies: acetaminophen (Verified Allergy, Severe, Nausea/Vomiting, 08/12/17) oxycodone (Verified Allergy, Severe, Nausea/Vomiting, 08/12/17) Family History Mom: Izzy's Dad: passed at age 81 from fall, HLD, HTN Social History No smoking hx, no illict/recreational drug use, ETOH cocktail once/week Physical Exam Vital Signs Vital Signs Date Time Temp Pulse Resp B/P (MAP) Pulse Ox O2 Delivery O2 Flow Rate FiO2 08/13/17 12:14 98.3 73 18 99/53 (68) 96 08/13/17 08:02 98.1 60 18 99/55 (70) 97 08/13/17 00:00 97.2 83 20 113/61 (78) 95 08/12/17 20:00 98.1 79 18 104/55 (71) 94 08/12/17 16:24 97.8 88 19 116/61 (79) 93 08/12/17 14:40 08/12/17 14:27 95 08/12/17 13:00 84 16 120/65 (83) 94 Room Air Physical Exam GENERAL: This is a well-nourished, well-developed patient, laying in bed, in no apparent distress. SKIN: Cool and dry. HEAD: Atraumatic. Normocephalic. mouth more symmetrical today but still not able to get her tongue all the way to the left EYES: Pupils equal round and reactive. Extraocular motions intact. No nystagmus on fixed, lateral, or smooth pursuit gaze. No scleral icterus. No injection or drainage. ENT: Throat without erythema. Uvula midline. Airway patent. NECK: Trachea midline. Supple, nontender, no meningeal signs. CARDIOVASCULAR: Regular rate and rhythm without murmurs, gallops, or rubs. RESPIRATORY: Clear to auscultation. Breath sounds equal bilaterally. No wheezes , rales, or rhonchi. GASTROINTESTINAL: Abdomen soft, non-tender, nondistended. N MUSCULOSKELETAL: Extremities without clubbing, cyanosis, or edema. No calf tenderness. NEUROLOGICAL: Awake and alert. Cranial nerves II, III, -X intact, CN XII intact except slight asymmetry face and mouth on left. Decreased sensation to touch along the left sided of the face. Left sided decreased sensation to touch of extremities, 4/5 strength. Increased or 3+ reflexes of triceps, patella, and biceps of left side. Negative Babinksi's sign. Cerebellar testing (nose to finger, heel to hernandez) normal. Normal speech, no facial droop observed but slight flattening on left Laboratory Laboratory Tests Test 08/13/17 08:23 White Blood Count 8.2 Red Blood Count 4.08 Hemoglobin 12.3 Hematocrit 36.3 Mean Corpuscular Volume 89.0 Mean Corpuscular Hemoglobin 30.1 Mean Corpuscular Hemoglobin Concent 33.8 Red Cell Distribution Width 14.3 Platelet Count 298 Mean Platelet Volume 8.0 Neutrophils (%) (Auto) 63.1 Lymphocytes (%) (Auto) 26.6 Monocytes (%) (Auto) 7.9 Eosinophils (%) (Auto) 1.6 Basophils (%) (Auto) 0.8 Neutrophils # (Auto) 5.2 Lymphocytes # (Auto) 2.2 Monocytes # (Auto) 0.6 Eosinophils # (Auto) 0.1 Basophils # (Auto) 0.1 CBC Comment DIFF FINAL Differential Comment Blood Urea Nitrogen 15 Creatinine 0.93 Random Glucose 107 Total Protein 6.3 Albumin 3.0 Calcium Level 9.3 Alkaline Phosphatase 96 Aspartate Amino Transf (AST/SGOT) 18 Alanine Aminotransferase (ALT/SGPT) 34 Total Bilirubin 0.3 Sodium Level 140 Potassium Level 4.2 Chloride Level 103 Carbon Dioxide Level 31.2 Anion Gap 6 Estimat Glomerular Filtration Rate 63 Result Diagram: 08/13/1782208/13/17822 Imaging Last [address] 08/12/171047 Signed Impressions: Service Date/Time: Saturday, August 12, 2017 10:47 - CONCLUSION: Normal examination. Dejon Arellano Jr., MD Chest X-Ray 08/12/171047 Signed Impressions: Service Date/Time: Saturday, August 12, 2017 11:41 - CONCLUSION: Hypoinflation with no acute cardiopulmonary process. MD Ara Guidry VTE Risk Assessment Caprini VTE Risk Assessment: Mod/High Risk (score >= 2) Caprini Risk Assessment Model Point Value = 1 Point Value = 2 Point Value = 3 Point Value = 5 Age 41-60 Minor surgery BMI > 25 kg/m2 Swollen legs Varicose veins or History of unexplained or recurrent spontaneous Oral contraceptives or hormone replacement Sepsis (< 1 month) Serious lung disease, including pneumonia (< 1 month) Abnormal pulmonary function Acute myocardial infarction Congestive heart failure (< 1 month) History of inflammatory bowel disease Medical patient at bed rest Age 61-74 Arthroscopic surgery Major open surgery (> 45 min) Laparoscopic surgery (> 45 min) Malignancy Confined to bed (> 72 hours) Immobilizing plaster cast Central venous access Age >= 75 History of VTE Family history of VTE Factor V Leiden Prothrombin [id number] Lupus anticoagulant Anticardiolipin antibodies Elevated serum homocysteine Heparin-induced thrombocytopenia Other congenital or acquired thrombophilia Stroke (< 1 month) Elective arthroplasty Hip, pelvis, or leg fracture Acute spinal cord injury (< 1 month) Prophylaxis Regimen Total Risk Factor Score Risk Level Prophylaxis Regimen 0-1 Low Early ambulation 2 Moderate Order ONE of the following: *Sequential Compression Device (SCD) *Heparin 5000 units SQ BID 3-4 Higher Order ONE of the following medications: *Heparin 5000 units SQ TID *Enoxaparin/Lovenox 40 mg SQ daily (WT < 150 kg, CrCl > 30 mL/min) *Enoxaparin/Lovenox 30 mg SQ daily (WT < 150 kg, CrCl > 10-29 mL/min) *Enoxaparin/Lovenox 30 mg SQ BID (WT < 150 kg, CrCl > 30 mL/min) AND/OR *Sequential Compression Device (SCD) 5 or more Highest Order ONE of the following medications: *Heparin 5000 units SQ TID (Preferred with Epidurals) *Enoxaparin/Lovenox 40 mg SQ daily (WT < 150 kg, CrCl > 30 mL/min) *Enoxaparin/Lovenox 30 mg SQ daily (WT < 150 kg, CrCl > 10-29 mL/min) *Enoxaparin/Lovenox 30 mg SQ BID (WT < 150 kg, CrCl > 30 mL/min) AND *Sequential Compression Device (SCD) Assessment and Plan Assessment and Plan Patient is a 52 y/o F w/hx of afib, HTN, and HLD presenting with headache, left sided chest pain,left sided weakness, and other stroke-like symptoms. Stroke scale of 4 (minimal). CT of the head was negative, patient was not a t-PA candidate due to length of time of symptoms. Patient passed swallow study and EKG and troponins were negative. Will admit patient for stroke work-up and consult neurology based on patient's hx of afib w/o anticoagulation and presentation of stroke-like symptoms. Differential: TIA, stroke, MS, hemiplegic migraine/migraine with aura, seizure Problem List: (1) Stroke-like episode ICD Codes: I63.9 - Cerebral infarction, unspecified Status: Acute Plan: Associated w/reported slurred speech, diplopia, left sided decreased sensation to touch, tingling, and weakness. Has had similar episodes in the past - Neurochecks Q4H - Consulted neurology - tele shows artifact and needs to be recalibrated, 2D echo - MRI, MRA, US carotids, lipid profile, A1C all done and fortunately are fine - lying flat in bed now can be up as it has been more than 24 hours, allow for permissive HTN (BP<220/120) - Pravastatin 40 mg daily - 81 mg aspirin and Lovenox 40 mg qdaily for anticoagulation (2) Migraine with aura ICD Codes: G43.109 - Migraine with aura, not intractable, without status migrainosus Status: Acute Plan: Associated w/unilateral, throbbing headache, photophobia, nausea, diplopia, and hemiplegia May be contributing to presenting symptoms Improvement in symptoms w/aspirin - Ibuprofen Q6H PRN - avoid codeine and acetaminophen containing products due to adverse rxn - may consider sumatriptan for abortive therapy if no resolution of headache - hopefully Neurology can help prevent future problems as fortunately she is improving today (3) Afib ICD Codes: I48.91 - Unspecified atrial fibrillation Plan: No afib observed on tele or on EKG Hx of afib per patient report, no anticoagulation - start baby ASA daily, Lovanox 40 mg daily -US carotids and 2D echo - cardiac tele monitoring was mainly artifact will see if this can be straightened out. Concern that she has a history of a fib and is on no anticoagulation. her chadds vasc score would be at least 2 and she may have had a TIA vs RIND which would increase her score. Unsure if she has paroxysmal a fib. 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 as we have not seen the a fib but the history of a year of Coumadin is consistent with a diagnosis of a fib (4) HTN (hypertension) ICD Codes: I10 - Essential (primary) hypertension Plan: Con't home metroprolol (5) Anxiety ICD Codes: F41.9 - Anxiety disorder, unspecified Plan: Home Xanax of 2 mg Q8H PRN, usually take one tab nightly - Start Xanax 1 mg Q8H PRN (6) Depression ICD Codes: F32.9 - Major depressive disorder, single episode, unspecified Plan: Con't home venlafaxine 75 mg daily (7) Hypothyroidism ICD Codes: E03.9 - Hypothyroidism, unspecified Plan: Con't home Levothyroxine 25 mg daily (8) FEN Plan: Fluids: none Electrolytes: none Nutrition: regular diet GI prophy: not indicated DVT prophy: Lovenox and baby ASA Problem Qualifiers (1) Migraine with aura: Qualified Codes: G43.101 - Migraine with aura, not intractable, with status migrainosus (2) Afib: Qualified Codes: I48.0 - Paroxysmal atrial fibrillation (3) HTN (hypertension): Qualified Codes: I10 - Essential (primary) hypertension (4) Depression: Qualified Codes: F32.9 - Major depressive disorder, single episode, unspecified (5) Hypothyroidism: Qualified Codes: E03.9 - Hypothyroidism, unspecified Ashley Herman MD Aug 13, 2017 12:16
[2017-08-13] MEDS: FLUTICASONE PROPIONATE 50 MCG/ACT 16 GM NASAL SPRAY EACH NARE SCH (13:00)
--- NOTE | 2017-08-13 14:35 | MB ---
cc: BHUMI NEGRETE M.D. DATE OF CONSULTATION 08/13/17 DATE OF 1965 REASON FOR CONSULTATION Possible TIA. HISTORY OF PRESENT ILLNESS A pleasant 52-year-old woman with history of hyperlipidemia, a-fib, hypertension, came in with some double vision, some left-sided pain. She felt foggy driving, some headache. She states she has been under a lot of stress due to a relationship she is in. Currently, she feels back to baseline, asking if she can go home. She was on Coumadin for about a year due to a history of a-fib. She stopped because it went away but does not take aspirin. PAST MEDICAL HISTORY As stated, hypothyroidism, hypertension, anxiety, depression. Sinus infections, history of a-fib in 2006. CURRENT MEDICATIONS 1. Xanax. 2. Effexor. 3. Metoprolol. 4. Synthroid. ALLERGIES TYLENOL, OXYCODONE. FAMILY HISTORY Mother has Alzheimer's. Father at 81 from hyperlipidemia, hypertension and a fall. SOCIAL HISTORY Does not smoke. No drugs. Once a week, maybe a cocktail. PHYSICAL EXAMINATION VITAL SIGNS: Temperature is 98.1, pulse 60, respiratory rate 18, blood pressure 99/55. NECK: Her neck is supple. I do not appreciate any bruits. HEART: Currently is regular. LUNGS: Lungs are clear. NEURO: She is awake, alert. She is oriented and fluent. Pupils are reactive. Visual nuñez full. Face symmetrical. Tongue midline. As far as motor exam she does not exhibit any weakness. No drift or leg lag. Reflexes are 2 to 3+, toes downgoing. Cerebellar normal, sensory is normal. Gait is withheld. She is having an echo. LABORATORY DATA CBC is normal. Coag panel was PT 9.7, PTT 23.9, INR 0.9. Chemistries, cholesterol is 236, triglycerides 290, LDL 110, HDL 68.4, albumin is 3, GFR is 63, glucose 107, hemoglobin A1c 5.9. Toxicology test are for benzodiazepines. Urine is negative. IMAGING STUDIES MRI brain with no acute infarct. Some sinus disease. Carotid ultrasound minimal plaquing in the bulbs but no significant stenosis. [place] incomplete [place], no aneurysm. Apparently, they noted absent flow in the A1 on the left with patent ___ communicating artery and symmetric appearance of A2 bilaterally. Basilar artery is normal. IMPRESSION Possible TIA in a 52-year-old woman. Recommend a Holter monitor as an outpatient to see she is in a-fib paroxysmally. Start her on aspirin. Continue her statin. Echo was just completed. Get her out of bed with PT if she is healing fine. From my perspective she can be discharged later today. Have her follow up as an outpatient with her primary care and with neurology as well as cardiology. Bhumi Negrete MD DF/RADHA /11:49 AM /2:13 PM
[2017-08-13] MEDS: ENOXAPARIN SODIUM 40 MG/0.4 ML SYRINGE SQ SCH (15:32)
--- NOTE | 2017-08-13 20:50 | ECHRPT ---
Indication: CVA/TIA CONCLUSIONS Normal left ventricular size. Wall thickness is normal. The left ventricular systolic function is low normal with an estimated ejection fraction in the rang e of 50- 55%. [id number]-qmfa mitral valve regurgitation. BP: 120 / 65 HR: Rhythm: Sinus MEASUREMENTS (Male / Female) Normal Values Technical Quality:Very technically difficult study 2D ECHO LV Diastolic Diameter PLAX 5.4 cm 4.2 - 5.9 / 3.9 - 5.3 cm LV Systolic Diameter PLAX 4.1 cm IVS Diastolic Thickness 1.0 cm 0.6 - 1.0 / 0.6 - 0.9 cm LVPW Diastolic Thickness 1.0 cm 0.6 - 1.0 / 0.6 - 0.9 cm LV Relative Wall Thickness 0.4 LVOT Diameter 2.1 cm Aortic Root Diameter 2.6 cm M-MODE AV Cusp Separation MM 1.9 cm DOPPLER AV Peak Velocity 143.0 cm/s AV Peak Gradient 8.2 mmHg AV Mean Gradient 4.0 mmHg AV Velocity Time Integral 25.7 cm LVOT Peak Velocity 72.9 cm/s LVOT Peak Gradient 2.1 mmHg LVOT Velocity Time Integral 15.9 cm AV Area Cont Eq vti 2.1 cm AV Area Cont Eq pk 1.8 cm Mitral E Point Velocity 82.9 cm/s Mitral A Point Velocity 95.8 cm/s Mitral E to A Ratio 0.9 LV E' Lateral Velocity 9.7 cm/s Mitral E to LV E' Lateral Ratio 8.6 LV E' Septal Velocity 7.2 cm/s Mitral E to LV E' Septal Ratio 11.5 PV Peak Velocity 73.7 cm/s PV Peak Gradient 2.2 mmHg FINDINGS LEFT VENTRICLE Normal left ventricular size. Wall thickness is normal. The left ventricular systolic function is low normal with an estimated ejection fraction in the rang e of 50- 55%. MITRAL VALVE [id number] mitral valve regurgitation. Fany Wilcox MD (Electronically Signed) Final Date:13 August 2017 20:49
[2017-08-13] MEDS: PRAVASTATIN SOD 40 MG TAB PO SCH (23:02)
[2017-08-14] VITALS: BP 99/56; PULSE 62; RESP 18; TEMP 97.2; O2SAT 97
[2017-08-14] MEDS: LEVOTHYROXINE SODIUM 25 MCG TAB PO SCH (05:42)
[2017-08-14 05:44] VITALS: BP 107/66; PULSE 58; RESP 18; TEMP 98; O2SAT 97
[2017-08-14 07:33] LABS: AUTOMATED NEUTROPHIL # 5.8 TH/MM3 (1.8-7.7); BASOPHIL # 0.1 TH/MM3 (0-0.2); BASOPHIL % 0.6 % (0.0-2.0); EOSINOPHIL # 0.2 TH/MM3 (0-0.4); EOSINOPHIL % 1.9 % (0.0-4.0); HEMATOCRIT 37.6 % (35.0-46.0); HEMO FLAGS DIFF FINAL; LYMPH % 25.1 % (9.0-44.0); LYMPHOCYTE # 2.3 TH/MM3 (1.0-4.8); MEAN CELL VOLUME 89.8 FL (80.0-100.0); MEAN CORPUSCULAR HEMOGLOBIN 30.2 PG (27.0-34.0); MEAN CORPUSCULAR HGB CONC 33.6 % (32.0-36.0); NEUT % 64.4 % (16.0-70.0); PLATELET COUNT 272 TH/MM3 (150-450); RED BLOOD COUNT 4.19 MIL/MM3 (4.00-5.30); RED CELL DISTRIBUTION WIDTH 14.4 % (11.6-17.2); WHITE BLOOD COUNT 9.1 TH/MM3 (4.0-11.0)
[2017-08-14 08:00] VITALS: PULSE 61
[2017-08-14 08:00] LABS: BICARBONATE 26.7 MEQ/L (21.0-32.0)
[2017-08-14] MEDS: DOCUSATE SODIUM 50 MG/SENNA 8.6 MG TAB PO SCH (08:24)
[2017-08-14] MEDS: ASPIRIN 81 MG CHEW TAB PO SCH (08:24)
[2017-08-14] MEDS: SODIUM CHLORIDE 0.9% FLUSH 10 ML FLUSH IV FLUSH SCH (08:25)
[2017-08-14] MEDS: VENLAFAXINE HCL XR 75 MG CAP PO SCH (08:25)
[2017-08-14] MEDS: METOPROLOL TARTRATE 100 MG TAB PO SCH (08:25)
[2017-08-14 08:55] VITALS: BP_SYST 129; BP_SYST 138; BP_DIAS 66; BP_DIAS 68; PULSE 63; PULSE 70; RESP 18; RESP 20; TEMP 97.6; TEMP 98.3; O2SAT 93
[2017-08-14] MEDS: FLUTICASONE PROPIONATE 50 MCG/ACT 16 GM NASAL SPRAY EACH NARE SCH (09:00)
[2017-08-14] MEDS: ALPRAZolam 1 MG TAB PO PRN (09:37)
[2017-08-14] MEDS: IBUPROFEN 400 MG TAB PO PRN (09:40)
--- NOTE | 2017-08-14 11:56 | HHI.FPPN ---
Subjective Remarks No acute events overnight. Patient denies any focal neuro deficit. Denies CP, SOB, cough, f/c. Ambulating without issues. Tolerating diet. Afebrile, vitals are stable. (Rey Zendejas MD R2) Objective Vitals Vital Signs Date Time Temp Pulse Resp B/P (MAP) Pulse Ox O2 Delivery O2 Flow Rate FiO2 08/14/17 08:55 98.3 70 20 129/66 (87) 93 08/14/17 05:44 98.0 58 18 107/66 (80) 97 08/14/17 00:00 97.2 62 18 99/56 (70) 97 08/13/17 20:41 97 08/13/17 20:00 66 08/13/17 20:00 97.6 62 20 102/52 (69) 96 08/13/17 16:25 98.3 67 18 94/55 (68) 96 08/13/17 12:14 98.3 73 18 99/53 (68) 96 I/O 08/13/17 08/13/17 08/13/17 08/14/17 08/14/17 08/14/17 07:00 15:00 23:00 07:00 15:00 23:00 Intake Total 360 ml Balance 360 ml Intake Oral 360 ml # Voids 3 5 1 (Rey Zendejas MD R2) Result Diagram: 08/14/1746 08/14/1746 Objective Remarks GENERAL: This is a well-nourished, well-developed patient, sitting up in bed eating breakfast, in no apparent distress. SKIN: Cool and dry. HEAD: Atraumatic. Normocephalic. EYES: Extraocular motions intact. No nystagmus on fixed, lateral, or smooth pursuit gaze. No scleral icterus. No injection or drainage. ENT: Throat without erythema. Uvula midline. Airway patent. NECK: Trachea midline. Supple, nontender, no meningeal signs. CARDIOVASCULAR: Regular rate and rhythm without murmurs, gallops, or rubs. RESPIRATORY: Clear to auscultation. Breath sounds equal bilaterally. No wheezes , rales, or rhonchi. GASTROINTESTINAL: Abdomen soft, non-tender, nondistended. N MUSCULOSKELETAL: Extremities without clubbing, cyanosis, or edema. No calf tenderness. NEUROLOGICAL: Awake and alert. Cranial nerves II, III, -X intact, CN XII intact except slight asymmetry face and mouth on left. Left sided decreased sensation to touch of extremities, 4/5 strength. Cerebellar testing (nose to finger, heel to hernandez) normal. Normal speech, no facial droop observed but slight flattening on left (Rey Zendejas MD R2) A/P Assessment and Plan Patient is a 52 y/o F w/hx of afib, HTN, and HLD presenting with headache, left sided chest pain, left sided weakness, and other stroke-like symptoms. CT of the head was negative, patient was not a t-PA candidate due to length of time of symptoms. Will admit patient for stroke work-up and consult neurology based on patient's hx of afib w/o anticoagulation and presentation of stroke-like symptoms. CHADSVASC score of 2. She is a candidate for anticoagulation. Discharge Planning Stable for discharge home today with outpatient follow up with PCP, neurology, and cardiology Will order a Holter monitor per neurology recommendations to evaluate for paroxysmal atrial fibrillation and if diagnosed, need for long-term anticoagulation (Rey Zendejas MD R2) Attending Attestation Patient seen and examined. Case reviewed and discussed with the resident team. Agree with plan of care as discussed with me and documented in the resident note. fortunately, she had no CVA. still suspect this could be complicated migraine as she had her weakness when she had the headache. As far as oral anticoagulants , she doesn't have the money to take meds and self D/Fan these medicines in the past. Encouraged her to follow up with Neurology and Cardiology and her PCP as an outpt (Ashley Herman MD) Problem List: (1) Stroke-like episode ICD Codes: I63.9 - Cerebral infarction, unspecified Status: Acute Plan: Associated w/ reported slurred speech, diplopia, left sided decreased sensation to touch, tingling, and weakness. Has had similar episodes in the past - Neurochecks Q4H - Consulted neurology - Echo showing normal left ventricular size, wall thickness is normal, estimated ejection fraction in the range of 50-55%, trace to mild mitral valve regurgitation - MRI, MRA, US carotids, all normal - A1c 5.9 - Lipid panel showing dyslipidemia - Pravastatin 40 mg daily - Continue aspirin on discharge - Holter monitor on discharge per neuro recs (2) Migraine with aura ICD Codes: G43.109 - Migraine with aura, not intractable, without status migrainosus Status: Acute Plan: Associated w/unilateral, throbbing headache, photophobia, nausea, diplopia, and hemiplegia May be contributing to presenting symptoms Improvement in symptoms w/aspirin - Ibuprofen Q6H PRN - Avoid codeine and acetaminophen containing products due to adverse rxn - May consider sumatriptan for abortive therapy if no resolution of headache (3) Afib ICD Codes: I48.91 - Unspecified atrial fibrillation Plan: No afib observed on tele or on EKG Hx of afib per patient report, no anticoagulation - Continue baby aspirin daily - Echo and carotid US as above - Cardiac tele monitoring was mainly artifact will see if this can be straightened out. Concern that she has a history of a fib and is on no anticoagulation. her chadds vasc score would be at least 2 and she may have had a TIA vs RIND which would increase her score. Unsure if she has paroxysmal a fib. 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 (4) HTN (hypertension) ICD Codes: I10 - Essential (primary) hypertension Plan: Continue home metoprolol (5) Anxiety ICD Codes: F41.9 - Anxiety disorder, unspecified Plan: Home Xanax of 2 mg Q8H PRN, usually take one tab nightly - Start Xanax 1 mg Q8H PRN (6) Depression ICD Codes: F32.9 - Major depressive disorder, single episode, unspecified Plan: Continue home Effexor (7) Hypothyroidism ICD Codes: E03.9 - Hypothyroidism, unspecified Plan: Continue home Synthroid (8) FEN Plan: Fluids: none Electrolytes: WNL Nutrition: Regular DVT ppx: Lovenox and baby aspirin (Rey Zendejas MD R2) Problem Qualifiers (1) Migraine with aura: Qualified Codes: G43.101 - Migraine with aura, not intractable, with status migrainosus (2) Afib: Qualified Codes: I48.0 - Paroxysmal atrial fibrillation (3) HTN (hypertension): Qualified Codes: I10 - Essential (primary) hypertension (4) Depression: Qualified Codes: F32.9 - Major depressive disorder, single episode, unspecified (5) Hypothyroidism: Qualified Codes: E03.9 - Hypothyroidism, unspecified Rey Zendejas MD R2 Aug 14, 2017 11:56 Ashley Herman MD Aug 14, 2017 13:16
[2017-08-14 11:58] VITALS: BP 106/62; PULSE 65; RESP 18; TEMP 98.7; O2SAT 94
[2017-08-14] MEDS ORDERED: ASPI81CH25 PO (12:10)
[2017-08-14] MEDS ORDERED: SENN1TAB PO (12:10)
[2017-08-14] MEDS ORDERED: METO-338 PO (12:10)
[2017-08-14] MEDS ORDERED: PRAV40TA PO (12:10)
--- NOTE | 2017-08-14 12:11 | HHI.DCPOC ---
Discharge Care Plan Diagnosis: (1) Left sided numbness Goals to Promote Your Health * To prevent worsening of your condition and complications, follow up with your primary care doctor, surveillance specialist, neurologist after leaving the hospital. Directions to Meet Your Goals Take your medications as prescribed Follow your dietary instruction Follow activity as directed Keep your appointments as scheduled Take your immunizations and boosters as scheduled If your symptoms worsen call your PCP, if no PCP go to Urgent Care Center or Emergency Room Smoking is Dangerous to Your Health. Avoid second hand smoke Call the 24-hour hour crisis hotline for domestic abuse at Rey Zendejas MD R2 Aug 14, 2017 12:11
--- NOTE | 2017-08-14 20:53 | EKG ---
Date Performed: 08/13/2017 Time Performed: 14:04:28 PTAGE: 52 years EKG: SINUS BRADYCARDIA BORDERLINE ECG PREVIOUS TRACING : 08/12/2017 10.21 DOCTOR: Fany Wilcox Interpretating Date/Time 08/14/2017 20:47:33
--- NOTE | 2017-08-15 11:55 | HHI.DCPOC ---
Discharge Care Plan Goals to Promote Your Health * To prevent worsening of your condition and complications * To maintain your health at the optimal level Directions to Meet Your Goals Take your medications as prescribed Follow your dietary instruction Follow activity as directed Keep your appointments as scheduled Take your immunizations and boosters as scheduled If your symptoms worsen call your PCP, if no PCP go to Urgent Care Center or Emergency Room Smoking is Dangerous to Your Health. Avoid second hand smoke Call the 24-hour hour crisis hotline for domestic abuse at Chinyere Chang MD R1 Aug 15, 2017 11:55
--- NOTE | 2017-08-15 12:04 | HHI.DS ---
Discharge Summary Admission Date Aug 12, 2017 at 14:08 Admitting Diagnosis CVA, left-sided weakness/numbness, visual changes (1) Stroke-like episode Plan: Associated w/ reported slurred speech, diplopia, left sided decreased sensation to touch, tingling, and weakness. Has had similar episodes in the past - Neurochecks Q4H - Consulted neurology - Echo showing normal left ventricular size, wall thickness is normal, estimated ejection fraction in the range of 50-55%, trace to mild mitral valve regurgitation - MRI, MRA, US carotids, all normal - A1c 5.9 - Lipid panel showing dyslipidemia - Pravastatin 40 mg daily - Continue aspirin on discharge - Holter monitor on discharge per neuro recs ICD Codes: I63.9 - Cerebral infarction, unspecified Status: Acute (2) Migraine with aura Plan: Associated w/unilateral, throbbing headache, photophobia, nausea, diplopia, and hemiplegia May be contributing to presenting symptoms Improvement in symptoms w/aspirin - Ibuprofen Q6H PRN - Avoid codeine and acetaminophen containing products due to adverse rxn - May consider sumatriptan for abortive therapy if no resolution of headache ICD Codes: G43.109 - Migraine with aura, not intractable, without status migrainosus Status: Acute (3) Afib Plan: No afib observed on tele or on EKG Hx of afib per patient report, no anticoagulation - Continue baby aspirin daily - Echo and carotid US as above - Cardiac tele monitoring was mainly artifact will see if this can be straightened out. Concern that she has a history of a fib and is on no anticoagulation. her chadds vasc score would be at least 2 and she may have had a TIA vs RIND which would increase her score. Unsure if she has paroxysmal a fib. - Will order a Holter monitor for the patient upon discharge to evaluate for paroxysmal a-fib - Outpatient follow up with cardiology and neurology - Consider need for anticoagulation based on Holter findings and per outpt patient services clerk ICD Codes: I48.91 - Unspecified atrial fibrillation (4) HTN (hypertension) Plan: Continue home metoprolol ICD Codes: I10 - Essential (primary) hypertension (5) Anxiety Plan: Home Xanax of 2 mg Q8H PRN, usually take one tab nightly - Start Xanax 1 mg Q8H PRN ICD Codes: F41.9 - Anxiety disorder, unspecified (6) Depression Plan: Continue home Effexor ICD Codes: F32.9 - Major depressive disorder, single episode, unspecified (7) Hypothyroidism Plan: Continue home Synthroid ICD Codes: E03.9 - Hypothyroidism, unspecified (8) FEN Plan: Fluids: none Electrolytes: WNL Nutrition: Regular DVT ppx: Lovenox and baby aspirin Brief History Ms Ngo is a 52 y/o F w/hx of HLD, afib, and HTN presenting with left- sided weakness and diplopia. Her 2 best friends are at bedside in the ED. At 7:30 am the morning of admission, she says that she felt like she was in a fog while driving, experiencing diplopia w/headache. States her left side was "bothering her," and further elaborates that she felt left-sided chest pain and weakness/numbness/tingling on the left side. She still proceeded on to her workplace, and while at work, noticed that her writing appeared more sloppy. She states that she could not focus and felt "out of it." Went and told network control operators supervisor something was wrong. She was excused from work and then drove herself to the ED. all the while, she had trouble staying focused on the road and felt confused. Her best friend spoke with her on the phone earlier in the day and noted increased slurring of speech. Currently, her confusion has resolved but her left side still feels painful/uncomfortable. Patient states she has felt better with aspirin she received in the ER. Denies palpitations, syncope, tremor, or hx of seizures. A week ago, had slurred speech and sluggishness lasting a couple hours. She states she then continued on with her day and did nothing about the symptoms she had. Has been very stressed at work lately and admits to "taking on too much." Dr. Arellano is her PCP. Does not see a patient services clerk. Had a history of afib in 2006. Was placed on coumadin for a year. However, she stopped taking it because her afib "went way" and she could not afford the Drs visits and medicine monitoring. Does not take a daily aspirin. Her headache was described as left sided pounding with worsening with light. she has visual changes she described as seeing two computers but also said the computers looked like buildings or shapes. She has a history of "sinus headaches " but has not had a headache exactly similar to this one. She just finished abx for a presumed sinusitis or other illness and does have sinus pressure and pain regularly but her headache yesterday was different in the increased pain and in some characteristics from her usual headaches. Today, she feels much improved "about 90%" with her numbness and weakness on her left side and has been up walking this am .Her MRI did not show a stroke. CBC/BMP: 08/14/17 0646 08/14/17 0646 Significant Findings Laboratory Tests Test 08/13/17 08:23 08/14/17 06:46 Random Glucose 107 MG/DL (74-106) Total Protein 6.3 GM/DL (6.4-8.2) Albumin 3.0 GM/DL (3.4-5.0) Estimat Glomerular Filtration Rate 63 ML/MIN (>89) 82 ML/MIN (>89) Calcium Level 8.4 MG/DL (8.5-10.1) PE at Discharge GENERAL: This is a well-nourished, well-developed patient, sitting up in bed eating breakfast, in no apparent distress. SKIN: Cool and dry. HEAD: Atraumatic. Normocephalic. EYES: Extraocular motions intact. No nystagmus on fixed, lateral, or smooth pursuit gaze. No scleral icterus. No injection or drainage. ENT: Throat without erythema. Uvula midline. Airway patent. NECK: Trachea midline. Supple, nontender, no meningeal signs. CARDIOVASCULAR: Regular rate and rhythm without murmurs, gallops, or rubs. RESPIRATORY: Clear to auscultation. Breath sounds equal bilaterally. No wheezes , rales, or rhonchi. GASTROINTESTINAL: Abdomen soft, non-tender, nondistended. N MUSCULOSKELETAL: Extremities without clubbing, cyanosis, or edema. No calf tenderness. NEUROLOGICAL: Awake and alert. Cranial nerves II, III, -X intact, CN XII intact except slight asymmetry face and mouth on left. Left sided decreased sensation to touch of extremities, 4/5 strength. Cerebellar testing (nose to finger, heel to hernandez) normal. Normal speech, no facial droop observed but slight flattening on left Pt Condition on Discharge: Stable Discharge Disposition: Discharge Home Discharge Instructions DIET: Follow Instructions for: As Tolerated, No Restrictions Activities you can perform: Regular-No Restrictions Chinyere Chang MD R1 Aug 15, 2017 12:04
--- NOTE | 2017-08-17 15:18 | HHI.DS ---
Discharge Summary Admission Date Aug 12, 2017 at 14:08 Discharge Date: Aug 14, 2017 Admitting Diagnosis CVA, left-sided weakness/numbness, visual changes (1) Stroke-like episode Diagnosis: Principal Plan: Associated w/ reported slurred speech, diplopia, left sided decreased sensation to touch, tingling, and weakness. Has had similar episodes in the past - Neurochecks Q4H - Consulted neurology - Echo showing normal left ventricular size, wall thickness is normal, estimated ejection fraction in the range of 50-55%, trace to mild mitral valve regurgitation - MRI, MRA, US carotids, all normal - A1c 5.9 - Lipid panel showing dyslipidemia - Pravastatin 40 mg daily - Continue aspirin on discharge - Holter monitor on discharge per neuro recs ICD Codes: I63.9 - Cerebral infarction, unspecified Status: Acute (2) Migraine with aura Diagnosis: Principal Plan: Associated w/unilateral, throbbing headache, photophobia, nausea, diplopia, and hemiplegia May be contributing to presenting symptoms Improvement in symptoms w/aspirin - Ibuprofen Q6H PRN - Avoid codeine and acetaminophen containing products due to adverse rxn - May consider sumatriptan for abortive therapy if no resolution of headache ICD Codes: G43.109 - Migraine with aura, not intractable, without status migrainosus Status: Acute (3) Afib Diagnosis: Principal Plan: No afib observed on tele or on EKG Hx of afib per patient report, no anticoagulation - Continue baby aspirin daily - Echo and carotid US as above - Cardiac tele monitoring was mainly artifact will see if this can be straightened out. Concern that she has a history of a fib and is on no anticoagulation. her chadds vasc score would be at least 2 and she may have had a TIA vs RIND which would increase her score. Unsure if she has paroxysmal a fib. - Will order a Holter monitor for the patient upon discharge to evaluate for paroxysmal a-fib - Outpatient follow up with cardiology and neurology - Consider need for anticoagulation based on Holter findings and per outpt meter repairer ICD Codes: I48.91 - Unspecified atrial fibrillation (4) HTN (hypertension) Diagnosis: Secondary Plan: Continue home metoprolol ICD Codes: I10 - Essential (primary) hypertension (5) Anxiety Diagnosis: Secondary Plan: Home Xanax of 2 mg Q8H PRN, usually take one tab nightly - Start Xanax 1 mg Q8H PRN ICD Codes: F41.9 - Anxiety disorder, unspecified (6) Depression Diagnosis: Secondary Plan: Continue home Effexor ICD Codes: F32.9 - Major depressive disorder, single episode, unspecified (7) Hypothyroidism Diagnosis: Secondary Plan: Continue home Synthroid ICD Codes: E03.9 - Hypothyroidism, unspecified (8) FEN Diagnosis: Secondary Plan: Fluids: none Electrolytes: WNL Nutrition: Regular DVT ppx: Lovenox and baby aspirin Consultants Neurology Brief History Ms Ngo is a 52 y/o F w/hx of HLD, afib, and HTN presenting with left- sided weakness and diplopia. Her 2 best friends are at bedside in the ED. At 7:30 am the morning of admission, she says that she felt like she was in a fog while driving, experiencing diplopia w/headache. States her left side was "bothering her," and further elaborates that she felt left-sided chest pain and weakness/numbness/tingling on the left side. She still proceeded on to her workplace, and while at work, noticed that her writing appeared more sloppy. She states that she could not focus and felt "out of it." Went and told magnetic prospecting supervisor something was wrong. She was excused from work and then drove herself to the ED. all the while, she had trouble staying focused on the road and felt confused. Her best friend spoke with her on the phone earlier in the day and noted increased slurring of speech. Currently, her confusion has resolved but her left side still feels painful/uncomfortable. Patient states she has felt better with aspirin she received in the ER. Denies palpitations, syncope, tremor, or hx of seizures. A week ago, had slurred speech and sluggishness lasting a couple hours. She states she then continued on with her day and did nothing about the symptoms she had. Has been very stressed at work lately and admits to "taking on too much." Dr. Arellaon is her PCP. Does not see a meter repairer. Had a history of afib in 2006. Was placed on coumadin for a year. However, she stopped taking it because her afib "went way" and she could not afford the Drs visits and medicine monitoring. Does not take a daily aspirin. Her headache was described as left sided pounding with worsening with light. she has visual changes she described as seeing two computers but also said the computers looked like buildings or shapes. She has a history of "sinus headaches " but has not had a headache exactly similar to this one. She just finished abx for a presumed sinusitis or other illness and does have sinus pressure and pain regularly but her headache yesterday was different in the increased pain and in some characteristics from her usual headaches. Today, she feels much improved "about 90%" with her numbness and weakness on her left side and has been up walking this am .Her MRI did not show a stroke. CBC/BMP: 08/14/1746 08/14/[address] 08/12: Normal examination Brain MRI 08/12: No acute findings in the brain. Left maxillary sinus disease. Head MRA 08/12: Incomplete and anomalous sun'aq of Conn. No vessel truncation or aneurysm. Carotid artery ultrasound 08/12: Minimal atherosclerotic plaquing in the carotid bulbs bilaterally. No sonographic or Doppler findings of a hemodynamically significant stenosis. Antegrade flow in both vertebrals. Chest x-ray 08/12: Hypoinflation with no acute cardiopulmonary process PE at Discharge GENERAL: This is a well-nourished, well-developed patient, sitting up in bed eating breakfast, in no apparent distress. SKIN: Cool and dry. HEAD: Atraumatic. Normocephalic. EYES: Extraocular motions intact. No nystagmus on fixed, lateral, or smooth pursuit gaze. No scleral icterus. No injection or drainage. ENT: Throat without erythema. Uvula midline. Airway patent. NECK: Trachea midline. Supple, nontender, no meningeal signs. CARDIOVASCULAR: Regular rate and rhythm without murmurs, gallops, or rubs. RESPIRATORY: Clear to auscultation. Breath sounds equal bilaterally. No wheezes , rales, or rhonchi. GASTROINTESTINAL: Abdomen soft, non-tender, nondistended. N MUSCULOSKELETAL: Extremities without clubbing, cyanosis, or edema. No calf tenderness. NEUROLOGICAL: Awake and alert. Cranial nerves II, III, -X intact, CN XII intact except slight asymmetry face and mouth on left. Left sided decreased sensation to touch of extremities, 4/5 strength. Cerebellar testing (nose to finger, heel to hernandez) normal. Normal speech, no facial droop observed but slight flattening on left Hospital Course Stroke workup was negative for any acute findings. Imaging as above. Neurology was consulted. 2-D echo from 08/13 with findings of normal left ventricular size , normal wall thickness, ejection fraction in the range of 50-55%, trace to mild mitral valve regurgitation. Neurology recommended the patient to have a Holter monitor as an outpatient to further investigate if she has paroxysmal A. fib. Continue an aspirin daily as well as her statin. Patient was informed that she will need to follow up with her primary care physician, as well as neurology and cardiology to determine if she will need long-term anticoagulation if she does indeed have A. fib. Pt Condition on Discharge: Stable Discharge Disposition: Discharge Home Discharge Instructions DIET: Follow Instructions for: As Tolerated, No Restrictions Activities you can perform: Regular-No Restrictions Follow up Referrals: Cardiology - 1 Week Neurology - 1 Week PCP Follow-up - 1 Week New Orders: HOLTER MONITOR - Today New Medications: Aspirin (Aspirin Low Strength) 81 Mg Chew 81 MG PO DAILY, #30 EA Metoprolol Tartrate (Lopressor) 100 Mg Tab 100 MG PO BID, #30 TAB Pravastatin (Pravachol) 40 Mg Tab 40 MG PO HS, #30 TAB Sennosides-Docusate Sodium (Senna Plus 8.6-50 mg) 8.6 Mg-50 Mg Tab 1 TAB PO BID, #30 TAB Continued Medications: Alprazolam (Xanax) 2 Mg Tab 2 MG PO Q8H PRN for ANXIETY, TAB 0 Refills Levothyroxine (Levothyroxine) 25 Mcg Tab 25 MCG PO DAILY for Thyroid, #30 TAB 0 Refills Venlafaxine (Effexor) 75 Mg Tab 75 MG PO DAILY, #30 TAB 0 Refills Rey Zendejas MD R2 Aug 17, 2017 15:18
== END 2017-08-14 13:37 | disposition home or self-care (01) | DRG 69 ==
LOC: NEPC 10:10 → NEDA 12:15 → OBSVTOIN 14:08 → N05A 14:42
PROVIDERS: ADMIT Family Medicine; ATTEND Family Medicine
DX: G45.9 Transient cerebral ischemic attack, unspecified (principal); G81.94 Hemiplegia, unspecified affecting left nondominant side; G43.101 Migraine with aura, not intractable, with status migrainosus; I10 Essential (primary) hypertension; F32.9 Major depressive disorder, single episode, unspecified; F41.9 Anxiety disorder, unspecified; H53.8 Other visual disturbances; E78.00 Pure hypercholesterolemia, unspecified; E03.9 Hypothyroidism, unspecified; H53.2 Diplopia; R47.81 Slurred speech; I34.0 Nonrheumatic mitral (valve) insufficiency
CPT/HCPCS: 70450; 70544; 70551; 71010; 80048; 80053; 80061; 80307; 81001; 82550; 83036; 84484; 85025; 85610; 85730; 93005; 93306; 93880; J1650; J2270; J2405